=== PATIENT | male | born 1960 | race Caucasian/White ===

== ENCOUNTER 2020-08-16 14:54 | Inpatient (IN) ==
[2020-08-16] MEDS ORDERED: CefOXitin 1,000 MG VIAL ONE (15:59)
[2020-08-16] MEDS ORDERED: cefOXitin 1,000 MG, Sodium Chloride IRRigation 1,000 ML IR ONE (17:00)
[2020-08-16] MEDS ORDERED: Lidocaine -MPF 2% 2 ML VIAL ONE (17:37)
[2020-08-16] MEDS ORDERED: *HR* Propofol 200 MG/20 ML VIAL IVP ONE (17:37)
[2020-08-16] MEDS ORDERED: *HR* Rocuronium Bromide 50 MG/5 ML VIAL ONE ×2 (17:40→19:43)
[2020-08-16] MEDS ORDERED: *HR* Meperidine 25 MG/ML SYRINGE IVP PRN (17:41)
[2020-08-16] MEDS ORDERED: Ondansetron 4 MG/2 ML VIAL IVP PRN ×2 (17:41→22:15)
[2020-08-16] MEDS ORDERED: cefOXitin 2,000 MG in 0.9 % Sodium Chloride 20 ML IVPB STA (17:53)
[2020-08-16] MEDS ORDERED: *HR* Heparin 5,000 UNIT/ML VIAL SQ SCH (18:00)
[2020-08-16] MEDS ORDERED: CefOXitin 2,000 MG VIAL ONE (18:21)
[2020-08-16] MEDS ORDERED: Acetaminophen IV 1,000 MG/100 ML BAG IVPB ONE (18:27)
[2020-08-16] MEDS ORDERED: Ondansetron 4 MG/2 ML VIAL ONE (18:27)
[2020-08-16] MEDS ORDERED: *HR* Magnesium Sulfate 1 GM/2 ML VIAL ONE (18:30)
[2020-08-16] MEDS ORDERED: *HR* FentaNYL (PF) 100 MCG/2 ML VIAL ONE (18:40)
[2020-08-16] MEDS ORDERED: Albumin Human 5% 12.5 GM/250 ML IV.SOLN ONE ×2 (19:03→19:07)
[2020-08-16] MEDS ORDERED: Isovue-300 50ML VIAL ONE (19:19)
[2020-08-16] MEDS ORDERED: Sugammadex Sodium 200 MG/2 ML VIAL IV ONE (20:13)
[2020-08-16] MEDS ORDERED: *HR* HYDROMORPHONE 2 MG/ML VIAL ONE (20:14)
[2020-08-16] MEDS ORDERED: Morphine Sulfate 2 MG/ML SYRINGE IVP PRN (20:27)
[2020-08-16] MEDS: *HR* HYDROmorphone PF 0.5 MG/0.5 ML SYRINGE IVP PRN ×3 (20:52→21:12)
[2020-08-16] MEDS ORDERED: *HR* Labetalol 20 MG/4 ML SYRINGE IVP PRN (21:17)
[2020-08-16] MEDS ORDERED: *HR* Labetalol 20 MG/4 ML SYRINGE IVP ONE (21:18)
[2020-08-16] MEDS ORDERED: *HR* Metoprolol 5 MG/5 ML VIAL IVP PRN (22:15)
[2020-08-16] MEDS: 0.9 % Sodium Chloride 1,000 ML IVC SCH (22:36)
[2020-08-17] MEDS: cefOXitin 2,000 MG in Water for inj. (sterile) 20 ML IVP SCH ×4 (00:22→23:47)
[2020-08-17] MEDS: *HR* Heparin 5,000 UNIT/ML VIAL SQ SCH ×2 (05:37→19:23)
[2020-08-17 08:39] LABS: INR 1.4; Prothrombin Time 15.5 Seconds (9.4-12.1)
[2020-08-17] MEDS: Pantoprazole 40 MG VIAL IVP SCH (08:46)
[2020-08-17 08:50] LABS: BUN/Creatinine Ratio 24 (6-26); Bilirubin,Direct 0.3 mg/dL (0.0-0.2); Bilirubin,Indirect 0.6 mg/dL (0.0-1.0); Bilirubin,Total 0.9 mg/dL (0.3-1.0); Blood Urea Nitrogen 22 mg/dL (6-20); Calcium 8.2 mg/dL (8.6-10.3); Carbon Dioxide 23 mEq/L (23-29); Chloride 105 mEq/L (98-107); Glucose 124 mg/dL (70-105); Lipase 8 Units/L (11-82); Magnesium 1.9 mg/dL (1.6-2.6); Osmolality,Calculated 281 (280-300); Potassium 4.3 mEq/L (3.5-5.1); Sodium 133 mEq/L (136-145); eGFR For African Americans > 60 (> 60); eGFR For Non-African Americans > 60 (> 60)
[2020-08-17] MEDS: 0.9 % Sodium Chloride 1,000 ML IVC SCH (11:54)
[2020-08-17] MEDS ORDERED: *HR* FentaNYL (PF) 100 MCG/2 ML VIAL IVP ONE (14:46)
[2020-08-17] MEDS: Acetaminophen IV 1,000 MG/100 ML BAG IVPB SCH ×2 (15:26→20:53)
[2020-08-17 15:38] LABS: Red Blood Count 3.91 M/mcL (4.19-5.50); Red Cell Distribution Width 26.8 % (11.5-14.5)
[2020-08-17 15:40] LABS: Hemoglobin 8.3 g/dL (12.9-16.9); Mean Corpuscular HGB Conc 29.6 g/dL (31.6-35.5); Mean Corpuscular Hemoglobin 21.2 pg (28.0-33.3); Mean Corpuscular Volume 71.6 fL (83.0-100.0); Mean Platelet Volume 9.2 fL (9.4-12.4); Platelet Count 266 K/mcL (140-400); White Blood Count 4.5 K/mcL (4.3-11.1)
[2020-08-17 16:06] LABS: Anisocytosis 3+ (Not Present); Lymphocytes # 1.5 K/mcL (0.6-4.6); Monocytes # 0.2 K/mcL (0.0-1.3); Neutrophils # 2.8 K/mcL (1.6-8.9)
[2020-08-17 16:07] LABS: Ovalocytes 1+ (Not Present)
[2020-08-18] MEDS: 0.9 % Sodium Chloride 1,000 ML IVC SCH (01:26)
[2020-08-18 01:40] LABS: Basophils % 0.2 %; Eosinophils % 0.2 %; Immature Granulocytes % 0.2 % (0-4)
[2020-08-18 01:41] LABS: Hematocrit 27.4 % (37.5-50.1); Hemoglobin 7.6 g/dL (12.9-16.9); Lymphocytes # 1.6 K/mcL (0.6-4.6); Lymphocytes % 28.1 %; Mean Corpuscular HGB Conc 27.7 g/dL (31.6-35.5); Mean Corpuscular Hemoglobin 20.4 pg (28.0-33.3); Mean Corpuscular Volume 73.7 fL (83.0-100.0); Mean Platelet Volume 9.6 fL (9.4-12.4); Monocytes # 0.5 K/mcL (0.0-1.3); Monocytes % 9.7 %; Platelet Count 256 K/mcL (140-400); Red Blood Count 3.72 M/mcL (4.19-5.50); Segmented Neutrophils % 61.6 %; White Blood Count 5.6 K/mcL (4.3-11.1)
[2020-08-18 01:44] LABS: Neutrophils # 3.5 K/mcL (1.6-8.9)
[2020-08-18 01:57] LABS: Anisocytosis 1+ (Not Present); Hypochromasia Present (Not Present); Platelet Estimate Normal (Normal); Poikilocytosis 1+ (Not Present)
[2020-08-18 02:03] LABS: BUN/Creatinine Ratio 19 (6-26); Blood Urea Nitrogen 19 mg/dL (6-20); Carbon Dioxide 22 mEq/L (23-29); Chloride 106 mEq/L (98-107); Glucose 102 mg/dL (70-105); Magnesium 1.9 mg/dL (1.6-2.6); Osmolality,Calculated 280 (280-300); Phosphorous 2.3 mg/dL (2.7-4.5); Sodium 134 mEq/L (136-145); eGFR For African Americans > 60 (> 60); eGFR For Non-African Americans > 60 (> 60)
[2020-08-18] MEDS: Acetaminophen IV 1,000 MG/100 ML BAG IVPB SCH ×4 (03:47→21:04)
[2020-08-18] MEDS: *HR* Heparin 5,000 UNIT/ML VIAL SQ SCH ×2 (05:43→17:03)
[2020-08-18] MEDS: cefOXitin 2,000 MG in Water for inj. (sterile) 20 ML IVP SCH ×3 (07:38→23:33)
[2020-08-18] MEDS: Pantoprazole 40 MG VIAL IVP SCH (07:38)
[2020-08-18] MEDS ORDERED: Orphenadrine 60 MG/2 ML VIAL IVP PRN (08:10)
[2020-08-18 08:55] LABS: Iron < 10 mcg/dL (65-175); Transferrin 193 mg/dL (203-362)
[2020-08-18] MEDS: Iron Sucrose Complex 250 MG in 0.9 % Sodium Chloride 250 ML IVPB SCH (14:52)
[2020-08-19] MEDS: Acetaminophen IV 1,000 MG/100 ML BAG IVPB SCH ×4 (02:48→21:18)
[2020-08-19] MEDS: *HR* Heparin 5,000 UNIT/ML VIAL SQ SCH ×2 (06:15→18:06)
[2020-08-19 06:17] LABS: Basophils % 0.6 %; Hemoglobin 7.5 g/dL (12.9-16.9); Immature Granulocytes % 0.6 % (0-4); Segmented Neutrophils % 72.8 %
[2020-08-19 06:18] LABS: Basophils # 0.1 K/mcL (0.0-0.2); Eosinophils # 0.3 K/mcL (0.0-0.6); Hematocrit 26.2 % (37.5-50.1); Lymphocytes # 1.4 K/mcL (0.6-4.6); Lymphocytes % 16.8 %; Mean Corpuscular HGB Conc 28.6 g/dL (31.6-35.5); Mean Corpuscular Hemoglobin 20.9 pg (28.0-33.3); Mean Platelet Volume 9.2 fL (9.4-12.4); Monocytes # 0.5 K/mcL (0.0-1.3); Monocytes % 6.2 %; Neutrophils # 6.3 K/mcL (1.6-8.9); Platelet Count 221 K/mcL (140-400); Red Blood Count 3.59 M/mcL (4.19-5.50); Red Cell Distribution Width 26.3 % (11.5-14.5); White Blood Count 8.6 K/mcL (4.3-11.1)
[2020-08-19 06:53] LABS: BUN/Creatinine Ratio 20 (6-26); Blood Urea Nitrogen 16 mg/dL (6-20); Calcium 8.1 mg/dL (8.6-10.3); Carbon Dioxide 21 mEq/L (23-29); Chloride 106 mEq/L (98-107); Glucose 94 mg/dL (70-105); Magnesium 1.9 mg/dL (1.6-2.6); Osmolality,Calculated 279 (280-300); Phosphorous 2.8 mg/dL (2.7-4.5); Potassium 3.9 mEq/L (3.5-5.1); Sodium 134 mEq/L (136-145); eGFR For African Americans > 60 (> 60); eGFR For Non-African Americans > 60 (> 60)
[2020-08-19 07:15] LABS: Platelet Estimate Normal (Normal)
[2020-08-19] MEDS: cefOXitin 2,000 MG in Water for inj. (sterile) 20 ML IVP SCH ×2 (09:09→15:15)
[2020-08-19] MEDS: Iron Sucrose Complex 250 MG in 0.9 % Sodium Chloride 250 ML IVPB SCH (09:10)
[2020-08-19] MEDS: Pantoprazole 40 MG VIAL IVP SCH (09:10)
[2020-08-20] MEDS: cefOXitin 2,000 MG in Water for inj. (sterile) 20 ML IVP SCH ×3 (00:02→17:11)
[2020-08-20 02:35] LABS: Immature Granulocytes % 0.5 % (0-4)
[2020-08-20 02:36] LABS: Basophils % 0.5 %; Eosinophils # 0.4 K/mcL (0.0-0.6); Eosinophils % 4.9 %; Hematocrit 28.3 % (37.5-50.1); Hemoglobin 8.4 g/dL (12.9-16.9); Lymphocytes # 1.7 K/mcL (0.6-4.6); Lymphocytes % 20.4 %; Mean Corpuscular HGB Conc 29.7 g/dL (31.6-35.5); Mean Corpuscular Hemoglobin 21.2 pg (28.0-33.3); Mean Corpuscular Volume 71.5 fL (83.0-100.0); Mean Platelet Volume 9.4 fL (9.4-12.4); Monocytes # 0.6 K/mcL (0.0-1.3); Monocytes % 6.9 %; Neutrophils # 5.7 K/mcL (1.6-8.9); Platelet Count 285 K/mcL (140-400); Red Blood Count 3.96 M/mcL (4.19-5.50); Red Cell Distribution Width 26.5 % (11.5-14.5); Segmented Neutrophils % 66.8 %; White Blood Count 8.5 K/mcL (4.3-11.1)
[2020-08-20 02:58] LABS: Platelet Estimate Normal (Normal)
[2020-08-20 02:59] LABS: BUN/Creatinine Ratio 20 (6-26); Blood Urea Nitrogen 16 mg/dL (6-20); Calcium 8.2 mg/dL (8.6-10.3); Carbon Dioxide 19 mEq/L (23-29); Chloride 104 mEq/L (98-107); Glucose 94 mg/dL (70-105); Magnesium 1.8 mg/dL (1.6-2.6); Osmolality,Calculated 277 (280-300); Phosphorous 2.8 mg/dL (2.7-4.5); Potassium 3.9 mEq/L (3.5-5.1); Sodium 133 mEq/L (136-145); eGFR For African Americans > 60 (> 60); eGFR For Non-African Americans > 60 (> 60)
[2020-08-20] MEDS: Acetaminophen IV 1,000 MG/100 ML BAG IVPB SCH ×4 (03:23→21:22)
[2020-08-20] MEDS: *HR* Heparin 5,000 UNIT/ML VIAL SQ SCH ×2 (05:16→17:11)
[2020-08-20] MEDS: Iron Sucrose Complex 250 MG in 0.9 % Sodium Chloride 250 ML IVPB SCH (10:12)
[2020-08-20] MEDS: Pantoprazole 40 MG VIAL IVP SCH (10:14)
[2020-08-21] MEDS: cefOXitin 2,000 MG in Water for inj. (sterile) 20 ML IVP SCH ×2 (00:20→08:35)
[2020-08-21 01:35] LABS: Basophils % 0.5 %; Eosinophils # 0.3 K/mcL (0.0-0.6); Eosinophils % 4.2 %; Hematocrit 26.8 % (37.5-50.1); Hemoglobin 7.8 g/dL (12.9-16.9); Lymphocytes # 1.4 K/mcL (0.6-4.6); Lymphocytes % 18.9 %; Mean Corpuscular HGB Conc 29.1 g/dL (31.6-35.5); Mean Corpuscular Hemoglobin 20.7 pg (28.0-33.3); Mean Corpuscular Volume 71.3 fL (83.0-100.0); Mean Platelet Volume 9.2 fL (9.4-12.4); Monocytes # 0.5 K/mcL (0.0-1.3); Monocytes % 6.8 %; Neutrophils # 5.1 K/mcL (1.6-8.9); Nucleated Red Blood Cells 0.7 /100 WBC (0); Platelet Count 261 K/mcL (140-400); Red Blood Count 3.76 M/mcL (4.19-5.50); Red Cell Distribution Width 26.5 % (11.5-14.5); Segmented Neutrophils % 66.6 %; White Blood Count 7.6 K/mcL (4.3-11.1)
[2020-08-21 01:50] LABS: BUN/Creatinine Ratio 15 (6-26); Blood Urea Nitrogen 13 mg/dL (6-20); Calcium 8.1 mg/dL (8.6-10.3); Carbon Dioxide 22 mEq/L (23-29); Chloride 101 mEq/L (98-107); Glucose 96 mg/dL (70-105); Magnesium 1.6 mg/dL (1.6-2.6); Osmolality,Calculated 272 (280-300); Phosphorous 2.8 mg/dL (2.7-4.5); Potassium 3.6 mEq/L (3.5-5.1); Sodium 131 mEq/L (136-145); eGFR For African Americans > 60 (> 60); eGFR For Non-African Americans > 60 (> 60)
[2020-08-21 02:03] LABS: Anisocytosis 1+ (Not Present); Platelet Estimate Normal (Normal); Poikilocytosis 1+ (Not Present); Polychromasia 1+ (Not Present)
[2020-08-21] MEDS: Acetaminophen IV 1,000 MG/100 ML BAG IVPB SCH ×2 (02:37→10:26)
[2020-08-21] MEDS: *HR* Heparin 5,000 UNIT/ML VIAL SQ SCH (05:36)
[2020-08-21] MEDS: Pantoprazole 40 MG VIAL IVP SCH (08:36)
[2020-08-21] MEDS: Iron Sucrose Complex 250 MG in 0.9 % Sodium Chloride 250 ML IVPB SCH (08:36)
[2020-08-21 10:21] VITALS: BP 131/78
== END 2020-08-21 13:20 | disposition home or self-care (01) | DRG 330 ==
LOC: 3ANU
PROVIDERS: ADMIT Surgery; ATTEND Surgery